=== PATIENT | male | born 1980 | race Hispanic/Latino ===

== ENCOUNTER 2019-01-01 10:23 | Emergency (ER) | payer SELFPAY ==
--- NOTE | 2019-01-01 10:55 | RAD ---
XR Shoulder Rt 3 View STANDARD HISTORY: Right shoulder pain x1 month. COMPARISON: None. FINDINGS: Minimal arthrosis of the AC joint is seen. The glenohumeral joint space is normal. No fract ures. IMPRESSION: Minimal arthrosis of the AC joint.
== END 2019-01-01 11:48 | disposition home or self-care (01) ==
LOC: ERS 10:23
DX: S40.012A Contusion of left shoulder, initial encounter (principal); W19.XXXA Unspecified fall, initial encounter

== ENCOUNTER 2019-11-24 15:32 | Emergency (ER) | payer SELFPAY ==
[2019-11-24] MEDS ORDERED: Ondansetron PF 4 MG/2 ML Vial ONE (16:05)
[2019-11-24 16:21] LABS: #Basophils 0.1 thou/uL (0.0-0.2); #Eosinphils 0.1 thou/uL (0.0-0.7); #Lymphocytes 1.4 thou/uL (1.20-3.40); #Monocytes 0.3 thou/uL (0.11-0.59); #Neutrophils 3.3 thou/uL (1.40-6.50); %Basophils 1.4 % (0.0-1.0); %Eosinophils 2.5 % (0.0-10.0); %Lymphocytes 27.3 % (21.0-51.0); %Monocytes 6.4 % (0.0-10.0); %Neutrophils 62.5 % (42.0-75.0); Hemoglobin 16.2 g/dL (14.0-18.0); Mean Corpuscular HGB CONC 34.5 g/dL (32.0-36.0); Mean Corpuscular Hemoglobin 30.9 pg (27.0-31.0); Mean Corpuscular Volume 89.6 fL (78.0-98.0); Mean Platelet Volume 8.9 fL (7.4-10.4); Platelet Count 144 thou/uL (130-400); Red Blood Cell (RBC) Count 5.24 mill/uL (4.70-6.10); White Blood Cell (WBC) Count 5.2 thou/uL (4.8-10.8)
[2019-11-24 16:50] LABS: ALT (SGPT) 38 U/L (8-55); AST (SGOT) 20 U/L (5-34); Albumin 4.2 g/dL (3.5-5.0); Alkaline Phosphatase 52 U/L (40-110); Anion Gap 12 mmol/L (10-20); BUN (Urea Nitrogen) 12 mg/dL (8.9-20.6); Bilirubin, Total 0.3 mg/dL (0.2-1.2); Calc. Creatinine Clearance 0 mL/min (70-130); Calcium 9.2 mg/dL (7.8-10.44); Carbon Dioxide 27 mmol/L (22-29); Chloride 103 mmol/L (98-107); Estimated GFR-MDRD 78; Glucose 101 mg/dL (70-105); Magnesium 1.8 mg/dL (1.6-2.6); Potassium 3.8 mmol/L (3.5-5.1); Protein, Total 7.2 g/dL (6.0-8.3); Sodium 138 mmol/L (136-145)
--- NOTE | 2019-11-26 15:08 | RAD ---
EXAM: CHEST ONE VIEW HISTORY: Left arm pain and nausea. COMPARISON: None FINDINGS: Cardiac silhouette and pulmonary vasculature are within normal limits for the portable technique of t he study. The lungs are clear. The osseous structures are intact. IMPRESSION: No acute cardiopulmonary process.
== END 2019-11-24 17:52 | disposition home or self-care (01) ==
LOC: ERS 15:32
DX: R11.0 Nausea (principal); R20.2 Paresthesia of skin
CPT/HCPCS: 71045; 80053; 83735; 84484; 85025; 93005; 96374; J2405